=== PATIENT | male | born 1985 | race Asian ===

== ENCOUNTER 2022-12-28 18:54 | Emergency (ER) | payer MEDICAID ==
[~2022-12-28] VITALS: Ht 170.2 cm; Wt 79.8 kg
[2022-12-28 19:03] VITALS: BP 144/98
[2022-12-28] MEDS ORDERED: CIPR10DR LEFT EAR (21:09)
[2022-12-28] MEDS ORDERED: Cipro HC otic suspension 10ML bottle LEFT EAR STA (21:10)
== END 2022-12-28 21:33 | disposition home or self-care (01) ==
LOC: ER 18:55
DX: H60.502 Unspecified acute noninfective otitis externa, left ear (principal)
CPT/HCPCS: 99283